=== PATIENT | male | born 1955 | race Two or more races ===

== ENCOUNTER 2021-12-21 10:30 | Outpatient (CLI) | payer OTHER | END 2021-12-21 10:35 | disposition home or self-care (01) | LOC: SONOGRAMA 10:30 | PROVIDERS: ATTEND Pathology Anatomic Pathology & Clinical Pathology | DX: E04.2 Nontoxic multinodular goiter (principal) ==

== ENCOUNTER 2022-11-21 08:01 | Outpatient (CLI) | payer OTHER | END 2022-11-21 08:15 | disposition home or self-care (01) | LOC: SONOGRAMA 08:01 | PROVIDERS: ATTEND Internal Medicine | DX: E04.2 Nontoxic multinodular goiter (principal) ==

== ENCOUNTER 2024-01-20 13:48 | Outpatient (CLI) | payer OTHER | END 2024-01-20 14:00 | disposition home or self-care (01) | LOC: SONOGRAMA 13:48 | PROVIDERS: ATTEND Internal Medicine | DX: E04.2 Nontoxic multinodular goiter (principal) ==

== ENCOUNTER 2024-02-03 09:14 | Outpatient (CLI) | payer OTHER | END 2024-02-03 09:17 | disposition home or self-care (01) | LOC: SONOGRAMA 09:14 | PROVIDERS: ATTEND Pathology Anatomic Pathology & Clinical Pathology | DX: D34 Benign neoplasm of thyroid gland (principal); E06.3 Autoimmune thyroiditis; E04.2 Nontoxic multinodular goiter ==